=== PATIENT | male | born 1955 | race Caucasian/White ===

== ENCOUNTER 2020-09-10 15:08 | Inpatient (IN) | payer MEDICARE ==
[~2020-09-10] VITALS: Ht 193 cm; Wt 94.5 kg
[2020-09-10 18:40] LABS: HEMOGLOBIN 13.1 gm/dl (14.0-17.5); RED BLOOD COUNT 4.84 M/UL (4.20-5.50); WHITE BLOOD COUNT 15.8 K/UL (4.5-11.0)
[2020-09-10 20:49] LABS: BUN/CREATININE RATIO 25 (0-10)
[2020-09-10] MEDS ORDERED: IBUPROFEN800 MG PO (22:07)
[2020-09-10] MEDS ORDERED: COMPLETE FORMU1 EAC2 PO (22:07)
[2020-09-10] MEDS ORDERED: MIRAPEX ER1.5 MG PO (22:08)
[2020-09-10] MEDS ORDERED: CYMBALTA30 MG PO (22:08)
[2020-09-10] MEDS ORDERED: NEURONTIN800 MG PO (22:08)
[2020-09-10] MEDS ORDERED: GLUCOPHAGE XR500 MG PO (22:09)
[2020-09-10] MEDS ORDERED: IRON325 M1 PO (22:09)
[2020-09-10] MEDS ORDERED: NEXIUM40 MG PO (22:10)
[2020-09-10] MEDS ORDERED: ZANAFLEX4 M1 PO (22:10)
[2020-09-10] MEDS ORDERED: ASPIRIN EC81 MG PO (22:10)
[2020-09-11 11:23] LABS: HEMOGLOBIN 12.4 gm/dl (14.0-17.5); RED BLOOD COUNT 4.47 M/UL (4.20-5.50); WHITE BLOOD COUNT 14.8 K/UL (4.5-11.0)
[2020-09-11 11:41] LABS: BUN/CREATININE RATIO 18 (0-10)
[2020-09-12 04:27] LABS: HEMOGLOBIN 11.6 gm/dl (14.0-17.5); RED BLOOD COUNT 4.21 M/UL (4.20-5.50); WHITE BLOOD COUNT 14.5 K/UL (4.5-11.0)
[2020-09-12 04:47] LABS: BUN/CREATININE RATIO 16 (0-10)
[2020-09-14 05:41] LABS: BUN/CREATININE RATIO 17 (0-10)
[2020-09-14 06:02] LABS: HEMOGLOBIN 11.5 gm/dl (14.0-17.5); RED BLOOD COUNT 4.23 M/UL (4.20-5.50)
[2020-09-14 06:03] LABS: WHITE BLOOD COUNT 9.7 K/UL (4.5-11.0)
[2020-09-16 03:13] LABS: HEMOGLOBIN 11.5 gm/dl (14.0-17.5); RED BLOOD COUNT 4.23 M/UL (4.20-5.50); WHITE BLOOD COUNT 10.2 K/UL (4.5-11.0)
[2020-09-16 03:53] LABS: BUN/CREATININE RATIO 13 (0-10)
--- NOTE | 2020-09-16 13:59 | NUR ---
PATIENT LEFT FLOOR WITH OR STAFF AT 2:00. PATIENT STABEL ACCOMPANIED.
[2020-09-16] MEDS ORDERED: OXYCODON-ACETA1 EAC1 PO (16:20)
[2020-09-17 07:16] LABS: HEMOGLOBIN 10.3 gm/dl (14.0-17.5); RED BLOOD COUNT 3.91 M/UL (4.20-5.50)
[2020-09-17 07:17] LABS: WHITE BLOOD COUNT 14.9 K/UL (4.5-11.0)
[2020-09-17 07:41] LABS: BUN/CREATININE RATIO 11 (0-10)
[2020-09-18 05:53] LABS: HEMOGLOBIN 10.3 gm/dl (14.0-17.5); RED BLOOD COUNT 3.87 M/UL (4.20-5.50); WHITE BLOOD COUNT 11.4 K/UL (4.5-11.0)
[2020-09-18 06:02] LABS: BUN/CREATININE RATIO 9 (0-10)
[2020-09-19 05:37] LABS: HEMOGLOBIN 10.6 gm/dl (14.0-17.5); RED BLOOD COUNT 3.93 M/UL (4.20-5.50); WHITE BLOOD COUNT 9.2 K/UL (4.5-11.0)
[2020-09-19 05:59] LABS: BUN/CREATININE RATIO 13 (0-10)
[2020-09-21 03:14] LABS: RED BLOOD COUNT 4.1 M/UL (4.20-5.50)
[2020-09-21 03:35] LABS: BUN/CREATININE RATIO 12 (0-10)
[2020-09-22 06:25] LABS: HEMOGLOBIN 11.2 gm/dl (14.0-17.5); RED BLOOD COUNT 4.17 M/UL (4.20-5.50); WHITE BLOOD COUNT 7.6 K/UL (4.5-11.0)
[2020-09-22 07:28] LABS: BUN/CREATININE RATIO 14 (0-10)
[2020-09-23 06:06] LABS: HEMOGLOBIN 10.7 gm/dl (14.0-17.5); RED BLOOD COUNT 3.99 M/UL (4.20-5.50); WHITE BLOOD COUNT 7.8 K/UL (4.5-11.0)
[2020-09-23 06:28] LABS: BUN/CREATININE RATIO 14 (0-10)
[2020-09-24 06:24] LABS: HEMOGLOBIN 11.6 gm/dl (14.0-17.5); RED BLOOD COUNT 4.27 M/UL (4.20-5.50); WHITE BLOOD COUNT 7.8 K/UL (4.5-11.0)
[2020-09-24 07:16] LABS: BUN/CREATININE RATIO 11 (0-10)
[2020-09-24] MEDS ORDERED: GABAPENTIN300 MG PO (08:37)
[2020-09-24] MEDS ORDERED: SULFAMETHOXAZO1 EACH PO (08:44)
[2020-09-24] MEDS ORDERED: PERCOCET 7.5-31 EACH PO (08:53)
== END 2020-09-24 11:56 | DRG 854 ==
LOC: ER1 15:08 → CDU 23:13 → MED SURG 4 23:13
PROVIDERS: Emergency Medicine; Internal Medicine; Orthopaedic Surgery; Physician Assistant; ADMIT Internal Medicine
PROC: 0Y6J0Z3 Detachment at Left Lower Leg, Low, Open Approach (ICD-10-PCS; principal; 2020-09-16 12:30)
DX: A41.02 Sepsis due to Methicillin resistant Staphylococcus aureus (principal); M86.672 Other chronic osteomyelitis, left ankle and foot; L02.612 Cutaneous abscess of left foot; E87.6 Hypokalemia; D50.9 Iron deficiency anemia, unspecified; E11.40 Type 2 diabetes mellitus with diabetic neuropathy, unspecified; E11.610 Type 2 diabetes mellitus with diabetic neuropathic arthropathy; Z20.822 Contact with and (suspected) exposure to COVID-19; I25.10 Atherosclerotic heart disease of native coronary artery without angina pectoris; I10 Essential (primary) hypertension; E11.621 Type 2 diabetes mellitus with foot ulcer; L97.529 Non-pressure chronic ulcer of other part of left foot with unspecified severity; B95.62 Methicillin resistant Staphylococcus aureus infection as the cause of diseases classified elsewhere; J44.9 Chronic obstructive pulmonary disease, unspecified; F17.200 Nicotine dependence, unspecified, uncomplicated; K21.9 Gastro-esophageal reflux disease without esophagitis; E11.69 Type 2 diabetes mellitus with other specified complication
CPT/HCPCS: 36415; 71045; 73701; 73721; 80048; 80053; 80202; 82962; 83605; 85025; 85027; 85652; 86140; 87040; 87070; 87077; 87186; 87205; 93005; 93926; 96365; 96366; 96368; 96375; 96376; 97110; 97162; 97165; 97530; 97530-GP-CQ; 97535; 99285; J1100; J1170; J1650; J2001; J2250; J2270; J2405; J2543; J2704; J2765; J3010; J3370; J7040; J7070; J7120; Q9967; U0002

== ENCOUNTER 2020-10-20 14:50 | Observation (INO) | payer MEDICARE ==
[~2020-10-20] VITALS: Ht 193 cm; Wt 108.9 kg
[~2020-10-20 14:50] MED LIST: ASPIRIN EC81 MG PO; COMPLETE FORMU1 EAC2 PO; CYMBALTA30 MG PO; GABAPENTIN300 MG PO; GLUCOPHAGE XR500 MG PO; IBUPROFEN800 MG PO; IRON325 M1 PO; MIRAPEX ER1.5 MG PO; NEURONTIN800 MG PO; NEXIUM40 MG PO; OXYCODON-ACETA1 EAC1 PO; PERCOCET 7.5-31 EACH PO; SULFAMETHOXAZO1 EACH PO; ZANAFLEX4 M1 PO
[2020-10-20 17:29] LABS: HEMOGLOBIN 12.9 gm/dl (14.0-17.5); RED BLOOD COUNT 4.71 M/UL (4.20-5.50); WHITE BLOOD COUNT 9.3 K/UL (4.5-11.0)
[2020-10-20 17:57] LABS: BUN/CREATININE RATIO 14 (0-10)
[2020-10-22 03:47] LABS: HEMOGLOBIN 12.8 gm/dl (14.0-17.5); RED BLOOD COUNT 4.74 M/UL (4.20-5.50); WHITE BLOOD COUNT 8.9 K/UL (4.5-11.0)
[2020-10-22 04:16] LABS: BUN/CREATININE RATIO 15 (0-10)
[2020-10-22] MEDS ORDERED: PERCOCET 5/325 T1 EA PO (10:42)
== END 2020-10-22 17:46 | disposition home or self-care (01) ==
LOC: ER1 14:50 → CDU 21:20 → M/S 21:20
PROVIDERS: Internal Medicine; Physician Assistant Medical; ADMIT Internal Medicine
DX: E11.40 Type 2 diabetes mellitus with diabetic neuropathy, unspecified (principal); E11.65 Type 2 diabetes mellitus with hyperglycemia; M79.661 Pain in right lower leg; M79.671 Pain in right foot; T87.89 Other complications of amputation stump; E11.51 Type 2 diabetes mellitus with diabetic peripheral angiopathy without gangrene; E11.621 Type 2 diabetes mellitus with foot ulcer; L97.519 Non-pressure chronic ulcer of other part of right foot with unspecified severity; L40.9 Psoriasis, unspecified; I11.9 Hypertensive heart disease without heart failure; J44.9 Chronic obstructive pulmonary disease, unspecified; I25.10 Atherosclerotic heart disease of native coronary artery without angina pectoris; F17.210 Nicotine dependence, cigarettes, uncomplicated; Z89.512 Acquired absence of left leg below knee; Z98.890 Other specified postprocedural states; Z99.81 Dependence on supplemental oxygen; Z79.82 Long term (current) use of aspirin; Z79.84 Long term (current) use of oral hypoglycemic drugs; Z79.899 Other long term (current) drug therapy; Z20.822 Contact with and (suspected) exposure to COVID-19
CPT/HCPCS: 36415; 73120; 73590; 73630; 73701; 80048; 80053; 80202; 82550; 82553; 82962; 83605; 84484; 84550; 85025; 85652; 86140; 93926; 96372; 96374; 96375; 96376; 99285; G0378; J0696; J1170; J1650; J2270; J2405; J3370; J7030; J7070; Q9967; U0002

== ENCOUNTER → 2020-10-25 | Outpatient (CLI) | payer MEDICARE ==
[~2020-10-25] MED LIST changes: +PERCOCET 5/325 T1 EA PO
== END ==
LOC: KOH-I 15:01
DX: M79.671 Pain in right foot (principal); M25.571 Pain in right ankle and joints of right foot
CPT/HCPCS: 73610; 73630

== ENCOUNTER 2022-02-07 03:58 | Inpatient (IN) | payer MEDICARE ==
[~2022-02-07] VITALS: Ht 193 cm; Wt 113.4 kg
[~2022-02-07 03:58] MED LIST changes: -MIRAPEX ER1.5 MG PO
[2022-02-07 04:27] LABS: HEMOGLOBIN 12.9 gm/dl (14.0-17.5); RED BLOOD COUNT 4.98 M/UL (4.20-5.50); WHITE BLOOD COUNT 12.8 K/UL (4.5-11.0)
[2022-02-07 04:50] LABS: BUN/CREATININE RATIO 14 (0-10)
[2022-02-07] MEDS ORDERED: SUCRALFATE1 GM PO (10:29)
[2022-02-07] MEDS ORDERED: IBUPROFEN800 MG PO (10:30)
[2022-02-07] MEDS ORDERED: LYRICA200 MG PO (10:31)
[2022-02-07] MEDS ORDERED: CYMBALTA30 MG PO (10:32)
[2022-02-07] MEDS ORDERED: LYRICA100 MG PO (10:32)
[2022-02-07] MEDS ORDERED: VITAMIN D21250 MCG PO (10:34)
[2022-02-07] MEDS ORDERED: IRON325 M1 PO (10:35)
[2022-02-07] MEDS ORDERED: CIALIS20 MG PO (10:36)
[2022-02-07] MEDS ORDERED: ZANAFLEX4 MG PO (10:40)
[2022-02-07] MEDS ORDERED: TUMS ULTRA400 MG PO (10:41)
[2022-02-07] MEDS ORDERED: MAGNESIUM400 M2 PO (10:45)
--- NOTE | 2022-02-07 19:18 | NUR ---
CARDIOLOGY REQUEST THAT CONSULT PULMONOLOGY R/T PULOMARY EMBOLI. PATIENT REQUESTING PAIN MEDICATION. ATTEMPTED TO NOTIFY X2 WITH NO RESPONSE. WILL CONTINUE TO NOTIFY.
[2022-02-07] MEDS ORDERED: PRAMIPEXOLE DI1.5 MG PO (22:08)
[2022-02-08 02:50] LABS: HEMOGLOBIN 12.5 gm/dl (14.0-17.5); RED BLOOD COUNT 4.87 M/UL (4.20-5.50)
[2022-02-08 02:54] LABS: WHITE BLOOD COUNT 7.8 K/UL (4.5-11.0)
[2022-02-08 07:02] LABS: BUN/CREATININE RATIO 14 (0-10)
--- NOTE | 2022-02-08 15:27 | NUR ---
Patient refusing bed alarm stating that he gets up as needed on his own and doesn't want "that thing going off all the time". Patient is alert and oriented xs 3. 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 Ambulates without difficulty, denies any history of falls.
[2022-02-09 04:55] LABS: HEMOGLOBIN 11.9 gm/dl (14.0-17.5); RED BLOOD COUNT 4.68 M/UL (4.20-5.50); WHITE BLOOD COUNT 6.4 K/UL (4.5-11.0)
[2022-02-09 05:12] LABS: BUN/CREATININE RATIO 14 (0-10)
[2022-02-09] MEDS ORDERED: ELIQUIS 5 MG TAB5 MG PO (08:23)
[2022-02-09] MEDS ORDERED: LEVOFLOXACIN500 MG PO (08:23)
[2022-02-10 03:07] LABS: HEMOGLOBIN 12.3 gm/dl (14.0-17.5); RED BLOOD COUNT 4.83 M/UL (4.20-5.50); WHITE BLOOD COUNT 6.1 K/UL (4.5-11.0)
[2022-02-10 04:05] LABS: BUN/CREATININE RATIO 17 (0-10)
== END 2022-02-10 11:49 | disposition home health service (06) | DRG 176 ==
LOC: ER1 03:58 → CDU 05:38 → MED SURG 4 14:11
PROVIDERS: Nurse Practitioner; ADMIT Internal Medicine
PROC: B24BZZZ Ultrasonography of Heart with Aorta (ICD-10-PCS; principal; 2022-02-07)
DX: I26.99 Other pulmonary embolism without acute cor pulmonale (principal); L03.115 Cellulitis of right lower limb; E11.40 Type 2 diabetes mellitus with diabetic neuropathy, unspecified; I10 Essential (primary) hypertension; J44.9 Chronic obstructive pulmonary disease, unspecified; K21.9 Gastro-esophageal reflux disease without esophagitis; F17.210 Nicotine dependence, cigarettes, uncomplicated; I83.018 Varicose veins of right lower extremity with ulcer other part of lower leg; E83.42 Hypomagnesemia; R10.13 Epigastric pain; E87.6 Hypokalemia; L89.512 Pressure ulcer of right ankle, stage 2; I25.10 Atherosclerotic heart disease of native coronary artery without angina pectoris; E66.9 Obesity, unspecified; E11.51 Type 2 diabetes mellitus with diabetic peripheral angiopathy without gangrene; I73.9 Peripheral vascular disease, unspecified; Z95.1 Presence of aortocoronary bypass graft; Z89.512 Acquired absence of left leg below knee; Z98.890 Other specified postprocedural states; Z71.6 Tobacco abuse counseling; Z79.82 Long term (current) use of aspirin; Z79.899 Other long term (current) drug therapy; Z68.30 Body mass index [BMI] 30.0-30.9, adult; Z79.01 Long term (current) use of anticoagulants; I25.2 Old myocardial infarction
CPT/HCPCS: ECHO; 36415; 71045; 80048; 80053; 80061; 80202; 81001; 82550; 82553; 82607; 82962; 83036; 83735; 83880; 84132; 84439; 84443; 84484; 85025; 85027; 85379; 85652; 86140; 87040; 93005; 93306; 93970; 94664; 94760; 96374; 96375; 96376; 99285; C9113; G0378; J0696; J1940; J3370; J7070; Q9967; U0002